=== PATIENT | male | born 1940 | race Caucasian/White ===

== ENCOUNTER → 2017-10-20 | Outpatient (CLI) | payer MEDICARE, BC, OTHER | END | disposition home or self-care (01) | LOC: PLD 11:07 → LAB SHORT 11:07 | DX: L57.0 Actinic keratosis (principal) | CPT/HCPCS: 88305 ==

== ENCOUNTER → 2018-10-19 | Outpatient (CLI) | payer MEDICARE, BC, OTHER | END | disposition home or self-care (01) | LOC: PLD 11:59 → LAB SHORT 11:59 | DX: L57.0 Actinic keratosis (principal) | CPT/HCPCS: 88305 ==

== ENCOUNTER 2018-12-14 07:45 | Inpatient (IN) | payer MEDICARE, BC, OTHER ==
[~2018-12-14] VITALS: Ht 172.7 cm; Wt 76.7 kg
[2018-12-14] MEDS ORDERED: PROSTATE MED PO (08:16)
[2018-12-14] MEDS ORDERED: EUTHYROX100 MCG PO (08:16)
[2018-12-14 08:25] LABS: BASOPHILS ABSOLUTE AUTO 0.05 K/mm3 (0.00-0.23); BASOPHILS PERCENT AUTO 0 % (0-2); EOSINOPHILS ABSOLUTE AUTO 0.01 K/mm3 (0.00-0.68); EOSINOPHILS PERCENT AUTO 0 % (0-6); Hemoglobin 10.7 g/dL (13.5-17.5); IMMATURE GRAN ABSOLUTE AUTO 0.16 K/mm3 (0.00-0.10); IMMATURE GRAN PERCENT AUTO 1 % (0-1); LYMPHOCYTES ABSOLUTE AUTO 5.09 K/mm3 (0.84-5.20); LYMPHOCYTES PERCENT AUTO 20 % (21-46); MONOCYTES ABSOLUTE AUTO 1.12 K/mm3 (0.16-1.47); MONOCYTES PERCENT AUTO 5 % (4-13); Mean Corpuscular HGB 29.5 pg (26.0-34.0); Mean Corpuscular HGB Conc 31.5 g/dL (31.5-36.5); Mean Corpuscular Volume 94 fL (80-100); Mean Platelet Volume 9.4 fL (9.1-12.4); NEUTROPHILS ABSOLUTE AUTO 18.71 K/mm3 (1.96-9.15); NEUTROPHILS PERCENT AUTO 75 % (41-73); Platelet Count 540 K/mm3 (150-400); RDW Coefficient Variation 14.4 % (11.7-14.2); RDW Standard Deviation 49.7 fL (35.1-46.3); Red Blood Cell Count 3.63 M/mm3 (4.30-5.90); White Blood Cell Count 25.14 K/mm3 (4.00-11.30)
[2018-12-14 08:38] LABS: Albumin, Blood 3.4 g/dL (3.4-5.0); Albumin/Globulin Ratio 0.8 (0.8-1.8); Bilirubin, Total 0.5 mg/dL (0.1-1.0); Bun/Creatinine Ratio 26.2 (12.0-20.0); Calcium, Blood 9.3 mg/dL (8.5-10.1); Creatinine, Blood 1.3 mg/dL (0.60-1.20); Globulin, Blood 4.1 g/dL (2.2-4.0); Potassium, Blood 4.2 mmol/L (3.5-5.5); Total Protein, Blood 7.5 g/dL (6.4-8.2)
--- NOTE | 2018-12-14 18:20 | NUR ---
PT IS AOX4 AND COOPERATIVE OF CARE. PT IS RESTING IN BED AT THIS TIME. DENIES ANY PAIN. PT ABLE TO BE A ONE PERSON TRANSFER AT THIS TIME. NO SKIN ISSUES AND DENIES ANY PAIN. WILL CONTINUE TO MONITOR.
[2018-12-14 23:32] LABS: Source, Urine Voided
[2018-12-14 23:36] LABS: Bilirubin, Urine Neg (Neg); Blood, Urine Neg (Neg); Glucose Qualitative, Urine Neg (Neg); Ketones, Urine 2+ (Neg); Leukocyte Esterase, Urine Neg (Neg); Nitrite, Urine Neg (Neg); Protein, Urine 2+ (Neg); Urobilinogen, Urine 1+ (Normal)
[2018-12-14 23:41] LABS: Appearance, Urine Clear (Clear); Color, Urine Yellow (P-Yellow); White Blood Cells, Urine Rare /hpf (0-5)
[2018-12-14 23:42] LABS: Amorphous Light (0-Heavy); Bacteria Not Seen /hpf; Hyaline Casts 0-2 /lpf (0-2); Red Blood Cells, Urine Not Seen /hpf (0-2); Squamous Epithelial Cells Not Seen /hpf (Few)
--- NOTE | 2018-12-15 06:34 | NUR ---
SHIFT SUMMARY PT A/O USING URINAL. SCD'S IN PLACE. HE WAS ABLE TO SLEEP ON AND OFF T/O NIGHT. HAS BEEN 98-99% ON 1L O2 NC. DR ONTIVEROS SAID TO MOVE HIM TO RA AND SEE IF HE STILL NEEDS O2. WILL REPORT TO DAY RN.
--- NOTE | 2018-12-15 10:42 | NUR ---
CALLED [facility]ARE THIS AM AND CALLED A CONSULT TO DR LYLE PER DR ONTIVEROS REQUEST. DR LYLE CALLED THIS THREAD PULLING MACHINE ATTENDANT BACK STATING [facility] WOULD BE HIS REFERAL WITH PANCREATIC MATTERS. DR ONTIVEROS JUST WANTED DR LYLE TO CONSULT PT ABOUT POSSIBLE GASTRIC OBSTRUCTION AND HAD THIS THREAD PULLING MACHINE ATTENDANT NOTIFY DR LYLE ABOUT THIS AND LEFT DR ONTIVEROS'S PHONE NUMBER PER DR ONTIVEROS'S REQUEST IN CASE DR LYLE HAD ANY OTHER QUESTIONS.
--- NOTE | 2018-12-15 16:57 | NUR ---
PT IS AO X4 AND COOPERATIVE OF ALL CARE. PT HAS DENIED ANY PAIN OR NAUSEA TODAY. PT HAS BEEN UP AND WALKING WITH AID AND UP SITTING IN CHAIR. PT STATES HE IS READY TO GO HOME. WILL CONTINUE TO MONITOR NO DISTRESS NOTED.
[2018-12-15] MEDS ORDERED: FINA5 PO (18:31)
[2018-12-15] MEDS ORDERED: Acetaminophen325 M1 PO (18:31)
[2018-12-15] MEDS ORDERED: OMEP20ER PO (18:33)
[2018-12-15] MEDS ORDERED: ONDA4ODT SL (18:34)
--- NOTE | 2018-12-15 18:50 | NUR ---
PT DISCHARGED AT 1849. ALL PAPERS REVIEWED AND EDUCATIONAL MATERIAL SENT. NO DISTRESS NOTED FAMILY TO TRANSPORT. NO NAUSEA OR PAIN REPORTED.
== END 2018-12-15 18:49 | disposition home or self-care (01) | DRG 641 ==
LOC: ER 07:45 → ERHOLD 11:07 → MEDS 11:07
PROVIDERS: Physician Assistant; ADMIT Internal Medicine
DX: E86.0 Dehydration (principal); E44.0 Moderate protein-calorie malnutrition; N40.0 Benign prostatic hyperplasia without lower urinary tract symptoms; Z87.891 Personal history of nicotine dependence; D72.829 Elevated white blood cell count, unspecified; K76.89 Other specified diseases of liver; Z85.810 Personal history of malignant neoplasm of tongue; Z92.3 Personal history of irradiation; Z68.25 Body mass index [BMI] 25.0-25.9, adult
CPT/HCPCS: 36415; 71046; 74019; 74177; 80053; 81001; 83605; 83690; 85025; 87040; 93005; 93010; 96361; 96374; 99285-25; C9113; J0696; J2405; J3370; J7120; Q9967

== ENCOUNTER 2018-12-20 11:49 | Inpatient (IN) | payer MEDICARE, BC, OTHER ==
[~2018-12-20] VITALS: Ht 172.7 cm; Wt 74.8 kg
[~2018-12-20 11:49] MED LIST: Acetaminophen325 M1 PO; EUTHYROX100 MCG PO; FINA5 PO; OMEP20ER PO; ONDA4ODT SL; PROSTATE MED PO
[2018-12-20 12:37] LABS: BASOPHILS ABSOLUTE AUTO 0.05 K/mm3 (0.00-0.23); BASOPHILS PERCENT AUTO 0 % (0-2); EOSINOPHILS ABSOLUTE AUTO 0.06 K/mm3 (0.00-0.68); EOSINOPHILS PERCENT AUTO 0 % (0-6); Hemoglobin 8.3 g/dL (13.5-17.5); IMMATURE GRAN ABSOLUTE AUTO 0.24 K/mm3 (0.00-0.10); IMMATURE GRAN PERCENT AUTO 1 % (0-1); LYMPHOCYTES ABSOLUTE AUTO 3.62 K/mm3 (0.84-5.20); LYMPHOCYTES PERCENT AUTO 18 % (21-46); MONOCYTES ABSOLUTE AUTO 1.24 K/mm3 (0.16-1.47); MONOCYTES PERCENT AUTO 6 % (4-13); Mean Corpuscular HGB 27.9 pg (26.0-34.0); Mean Corpuscular HGB Conc 30.7 g/dL (31.5-36.5); Mean Platelet Volume 9.4 fL (9.1-12.4); NEUTROPHILS ABSOLUTE AUTO 15.53 K/mm3 (1.96-9.15); NEUTROPHILS PERCENT AUTO 75 % (41-73); Platelet Count 460 K/mm3 (150-400); RDW Coefficient Variation 15.1 % (11.7-14.2); Red Blood Cell Count 2.98 M/mm3 (4.30-5.90); White Blood Cell Count 20.74 K/mm3 (4.00-11.30)
[2018-12-20 12:38] LABS: Mean Corpuscular Volume 91 fL (80-100)
[2018-12-20 13:03] LABS: Alanine Aminotransfer (ALT/SGP 55 U/L (12-78); Albumin, Blood 2.9 g/dL (3.4-5.0); Albumin/Globulin Ratio 0.7 (0.8-1.8); Alk Phos 466 U/L (50-136); Anion Gap 7 mmol/L (6-16); Aspartate Aminotrans (AST/SGOT 81 U/L (12-37); Bilirubin, Total 0.9 mg/dL (0.1-1.0); Blood Urea Nitrogen 19 mg/dL (8-24); Bun/Creatinine Ratio 18.4 (12.0-20.0); CO2, Blood 27 mmol/L (21-32); Calcium, Blood 8.9 mg/dL (8.5-10.1); Chloride, Blood 107 mmol/L (98-108); Creatinine, Blood 1.03 mg/dL (0.60-1.20); Globulin, Blood 3.9 g/dL (2.2-4.0); Glomerular Filtration Rate >60 (60-); Glucose, Blood 94 mg/dL (70-99); Potassium, Blood 4.1 mmol/L (3.5-5.5); Sodium, Blood 141 mmol/L (136-145); Total Protein, Blood 6.8 g/dL (6.4-8.2)
--- NOTE | 2018-12-20 18:28 | NUR ---
PT ADMITTED FROM THER ER AND TRANSFERRED TO BED. PT IS A/O X 4 AND VERY PLEASANT AND DENIES PAIN. PT WAS ORIENTED TO ROOM AND NURSING STAFF WITH FAMILY AT BEDSIDE. PT STATES THAT HIS NAUSEA HAS SUBSIDED SINCE BEING IN THE ER. PT IS RESTING COMFORTABLY IN BED AND ABLE TO MAKE HIS NEEDS KNOWN.
--- NOTE | 2018-12-20 20:41 | NUR ---
PER PHYSICIAN REQUEST I CALLED RADIOLOGY AND SPOKE TO BRIGIDA AND REQUESTED THAT ALL IMAGES TAKEN OF PATIENT FROM THIS HOSPITALIZATION AND THE LAST BE SENT TO [facility].
--- NOTE | 2018-12-21 02:46 | NUR ---
FOUND PATIENT IN ROOM SITTING ON SIDE OF BED-VOMITING INTO EMESIS BAG. VISUALIZED PATIENT HAD VOMITED ON SELF AND BED APPROX 75CC OF DARK GREEN FLUID. PATIENT STATED THAT HE FELT BETTER. PATIENT THEN SAT IN CHAIR I GAVE PRESCRIBED ZOFRAN AND CHANGED HIS LINENS. PATIENT SAT IN CHAIR FOR APPROX 40 MINUTES AND THEN RETURNED TO BED. CHECKED ON PATIENT HALF AN HOUR AFTER INCIDENT AND PATIENT WAS RESTING WITH EYES CLOSED IN BED.
--- NOTE | 2018-12-21 06:18 | NUR ---
SHIFT SUMMARY PATIENT HAD 1 EPISODE OF EMESIS T/O NIGHT. PATIENT STATES THAT THE ANTI-NAUSEA MEDICATION HELPED AND HE WAS ABLE TO SLEEP FOR A FEW HOURS. VSS. WILL CONTINUE TO MONITOR
--- NOTE | 2018-12-21 16:19 | NUR ---
SHIFT SUMMARY: PT AWAKE AND A/O X 4 THIS SHIFT WITH NO C/O PAIN. PT CONTINUED WITH DRY COUGH SINCE THIS MORNING BUT NO C/O NAUSEA TO THIS NURSE. PT CONTINUES ON IV FLUIDS WITH NO ISSUE AND IV TO LEFT HAND IS INTACT AND PATENT. AROUND LUNCH TIME ORDERS WERE GIVEN TO PLACE NG TUBE AND IT WAS PLACED BY ANOTHER NURSE WITH THE CHARGE NURSE ASSIST. 950 ML OF DARK BROWN LIQUID WAS REMOVED AND PT CONTINUES ON INTERMITENT SUCTION. PT HAS VOIDED X [address] ONTIVEROS WAS NOTIFIED AND GAVE ORDERS TO BLADDER SCAN WHICH SHOWED 275 ML IN THE BLADDER. PT DENIES ANY AB PRESSURE OR URGENCY TO VOID AND HAS HAD ICE CHIPS THIS SHIFT. FAMILY WAS UPDATED AT THE REQUEST OF THE PT AND PT IS CURRENTLY RESTING IN BED.
--- NOTE | 2018-12-21 18:05 | NUR ---
THIS NURSE RECEIVED WORD THAT [facility] HAS A BED AVAILABLE FOR PT TO TRANSFER TO FOR NEEDED PROCEDURE. FAMILY WAS NOTIFIED, DR ONTIVEROS NOTIFIED AND REPORT CALLED TO RN, KRISTIN. PT IS REFUSING AMBULANCE TRANSPORT AND SON [facility] HAS AGREED TO TRANSPORT PT TO [facility] AND DR ONTIVEROS IS AWARE.
--- NOTE | 2018-12-21 18:54 | NUR ---
PT TRANSFERRED TP [facility] VIA PERSONAL CAR WITH HIS SON [facility] PER PT PREFERENCE. IV WAS SALINE LOCKED AND NG TUBE TAPED AND PINNED PER DR ONTIVEROS. PACKET SENT WITH PT. ALL BELONGINGS SENT WITH PT AND PT STABLE UPON DC.
== END 2018-12-21 18:56 | disposition short-term general hospital (02) | DRG 435 ==
LOC: ER 11:49 → MEDS 17:17 → ENPENDDIS 12-21 15:49 → MEDS 12-21 15:59
PROVIDERS: Emergency Medicine; ADMIT Internal Medicine
DX: C25.9 Malignant neoplasm of pancreas, unspecified (principal); J69.0 Pneumonitis due to inhalation of food and vomit; C78.7 Secondary malignant neoplasm of liver and intrahepatic bile duct; K31.1 Adult hypertrophic pyloric stenosis; Z85.819 Personal history of malignant neoplasm of unspecified site of lip, oral cavity, and pharynx; E03.9 Hypothyroidism, unspecified; Z92.3 Personal history of irradiation; I10 Essential (primary) hypertension; N40.0 Benign prostatic hyperplasia without lower urinary tract symptoms; Z87.891 Personal history of nicotine dependence; Z66 Do not resuscitate
CPT/HCPCS: 36415; 71045; 74022; 76705; 80053; 83690; 85025; 93005; 93010; 94640; 94760; 96361; 96365; 96366; 96374; 96375; 96376; 99285-25; C9113; G0378; J1956; J2405; J7030